=== PATIENT | male | born 1975 ===

== ENCOUNTER 2018-04-20 02:21 | Emergency (ER) | payer OTHER ==
[~2018-04-20] VITALS: Ht 162.6 cm; Wt 88.5 kg
[~2018-04-20 02:21] MED LIST: ADDERALL20 MG PO; DEPAKOTE ER500 MG PO; IMITREX6 MG/0.53 SC; KLONOPIN1 MG PO; MOTRIN800 MG PO; RISPERDAL1 MG PO; SEROQUEL XR300 MG PO; SEROQUEL300 MG PO; SEROQUEL400 MG PO; ZANTAC150 MG PO
[2018-04-20 02:58] LABS: HEMATOCRIT 44.5 % (38.0-50.0); HEMOGLOBIN 15.5 G/DL (12.5-16.6); MCH 32.6 PG (29.0-34.0); MCHC 34.8 G/DL (30.0-36.0); MCV 93.7 FL (86-99); PLATELET COUNT 172 K/uL (156-360); RBC DIS.WIDTH-CV 13.2 % (11.8-14.6); RBC DIS.WIDTH-SD 45.1 % (39-53); RED BLOOD COUNT 4.75 M/uL (4.00-5.50); WHITE BLOOD COUNT 7.8 K/uL (4.1-10.2)
[2018-04-20 03:09] LABS: CHLORIDE 109 mEq/L (99-109); POTASSIUM 4.1 mEq/L (3.7-5.4); SODIUM 145 mEq/L (136-147)
[2018-04-20 03:11] LABS: GLUCOSE 125 mg/dL (70-99)
[2018-04-20 03:14] LABS: SERUM ETHYL ALCOHOL 240 mg/dL
[2018-04-20 03:15] LABS: GFR ESTIMATE (CALCULATED) > 59 mL/min/ (58.99-99999)
[2018-04-20 03:16] LABS: UREA NITROGEN (BUN) 8 mg/dL (9-23)
[2018-04-20 07:11] LABS: APPEARANCE CLEAR ((CLEAR)); BILIRUBIN NEGATIVE; BLOOD NEGATIVE; COLOR YELLOW ((YELLOW)); GLUCOSE (STRIP) NEGATIVE; KETONES 5; LEUKOCYTES NEGATIVE; NITRITE NEGATIVE; PROTEIN (STRIP) NEGATIVE; SPECIFIC GRAVITY 1.013 (1.000-1.030); UCUL ADDED? NO; UROBILINOGEN 0.2 MG/DL (0.2-1.0)
[2018-04-20 07:22] LABS: AMPHETAMINE NEGATIVE (500 ng/mL); BARBITURATES NEGATIVE (200 ng/mL); BENZODIAZEPINES NEGATIVE (150 ng/mL); BUPRENORPHINE NEGATIVE (10 ng/mL); COCAINE NEGATIVE (150 ng/mL); METHADONE NEGATIVE (200 ng/mL); METHAMPHETAMINE NEGATIVE (500 ng/mL); OPIATES (MORPHINE) NEGATIVE (100 ng/mL); OXYCODONE NEGATIVE (100 ng/mL); PHENCYCLIDINE NEGATIVE (25 ng/mL); PROPOXYPHENE NEGATIVE (300 ng/mL); THC CANNABINOIDS NEGATIVE (50 ng/mL); TRICYCLIC ANTIDEPRESSANTS NEGATIVE (300 ng/mL)
[2018-04-20 08:09] VITALS: BP 112/65
== END 2018-04-20 08:13 | disposition home or self-care (01) ==
LOC: EME 02:21
PROVIDERS: Emergency Medicine
DX: F10.229 Alcohol dependence with intoxication, unspecified (principal); F32.9 Major depressive disorder, single episode, unspecified; Y90.8 Blood alcohol level of 240 mg/100 ml or more; Z04.6 Encounter for general psychiatric examination, requested by authority; F25.9 Schizoaffective disorder, unspecified; F90.9 Attention-deficit hyperactivity disorder, unspecified type; F17.200 Nicotine dependence, unspecified, uncomplicated; Z88.0 Allergy status to penicillin
CPT/HCPCS: 80048; 81003; 85027; 99281; 99285; G0480

== ENCOUNTER 2018-06-13 01:13 | Emergency (ER) | payer OTHER ==
[~2018-06-13] VITALS: Ht 170.2 cm; Wt 80.1 kg
[2018-06-13 01:43] LABS: HEMATOCRIT 42.8 % (38.0-50.0); HEMOGLOBIN 15.1 G/DL (12.5-16.6); MCHC 35.3 G/DL (30.0-36.0); MCV 93.4 FL (86-99); PLATELET COUNT 166 K/uL (156-360); RBC DIS.WIDTH-CV 13.1 % (11.8-14.6); RBC DIS.WIDTH-SD 44.7 % (39-53); RED BLOOD COUNT 4.58 M/uL (4.00-5.50); WHITE BLOOD COUNT 13.8 K/uL (4.1-10.2)
[2018-06-13 02:05] LABS: ALBUMIN 4.5 g/dL (3.2-4.8); CHLORIDE 106 mEq/L (99-109); POTASSIUM 3.6 mEq/L (3.7-5.4); SODIUM 140 mEq/L (136-147)
[2018-06-13 02:07] LABS: GLUCOSE 107 mg/dL (70-99)
[2018-06-13 02:08] LABS: TOTAL PROTEIN 7.2 g/dL (6.4-8.3)
[2018-06-13 02:09] LABS: TOTAL BILIRUBIN 0.8 mg/dL (0.0-1.0)
[2018-06-13 02:10] LABS: SERUM ETHYL ALCOHOL 20 mg/dL
[2018-06-13 02:11] LABS: ALKALINE PHOSPHATASE 71 IU/L (3-129); CREATININE 1.1 mg/dL (0.6-1.3); GFR ESTIMATE (CALCULATED) > 59 mL/min/ (58.99-99999)
[2018-06-13 02:12] LABS: UREA NITROGEN (BUN) 11 mg/dL (9-23)
[2018-06-13 02:13] LABS: AST (GOT) 18 IU/L (2-34); TROP-I INTERPRETATION NEGATIVE; TROPONIN-I < 0.01 ng/mL (0.0-0.30)
[2018-06-13 02:14] LABS: ALT (GPT) 22 IU/L (3-49); LIPASE 21 U/L (1.0-51.0)
[2018-06-13 03:55] LABS: CKMB RELATIVE INDEX 0.6 (0.0-3.9); CREATINE KINASE 154 IU/L (1-294); TOTAL CK 154 IU/L (1-294)
[2018-06-13] MEDS ORDERED: NAPROSYN500 MG PO (04:32)
[2018-06-13 05:42] VITALS: BP 128/78
[2018-06-14] MEDS ORDERED: ADDERALL10 MG PO (13:45)
[2018-06-14] MEDS ORDERED: NALTREXONE HCL50 MG PO (13:45)
[2018-06-14] MEDS ORDERED: BUSPIRONE HCL15 MG PO (13:45)
[2018-06-14] MEDS ORDERED: DIVALPROEX SOD500 MG PO (13:46)
[2018-06-14] MEDS ORDERED: QUETIAPINE FUM300 MG PO (13:46)
[2018-06-14] MEDS ORDERED: SUMATRIPTA6 MG/0.51 SC (13:46)
== END 2018-06-13 05:42 | disposition home or self-care (01) ==
LOC: EME → EDBD 01:13 → EME 05:42
PROVIDERS: Emergency Medicine
DX: L03.113 Cellulitis of right upper limb (principal); F14.90 Cocaine use, unspecified, uncomplicated; I80.8 Phlebitis and thrombophlebitis of other sites; R00.0 Tachycardia, unspecified; F10.99 Alcohol use, unspecified with unspecified alcohol-induced disorder; Z88.0 Allergy status to penicillin; F17.200 Nicotine dependence, unspecified, uncomplicated; Y90.1 Blood alcohol level of 20-39 mg/100 ml
CPT/HCPCS: 73201; 80053; 81003; 82550; 82553; 83605; 83690; 84484; 85027; 87040; 87186; 87801; 93005; 99281; 99285; G0480; J3370

== ENCOUNTER 2018-06-14 10:10 | Inpatient (IN) | payer OTHER ==
[~2018-06-14] VITALS: Ht 170.2 cm; Wt 83.5 kg
[~2018-06-14 10:10] MED LIST changes: +NAPROSYN500 MG PO
[2018-06-14 11:28] LABS: BASOPHIL (%) 0.3 % (0-1); EOSINOPHIL (%) 1.2 % (0-5); EOSINOPHIL COUNT 0.1 K/uL (0-0.3); HEMATOCRIT 40.7 % (38.0-50.0); HEMOGLOBIN 14.1 G/DL (12.5-16.6); IMMATURE GRANULOCYTE (%) 0.8 % (0.0-0.7); LYMPHOCYTE (%) 14.4 % (15-42); LYMPHOCYTE COUNT 1.4 K/uL (1.0-2.8); MCH 32.8 PG (29.0-34.0); MCHC 34.6 G/DL (30.0-36.0); MCV 94.7 FL (86-99); MONOCYTE (%) 8.7 % (3-12); MONOCYTE COUNT 0.8 K/uL (0-0.8); NEUTROPHIL (%) 74.6 % (45-76); NEUTROPHIL COUNT 7.2 K/uL (1.8-6.4); PLATELET COUNT 141 K/uL (156-360); RBC DIS.WIDTH-CV 12.9 % (11.8-14.6); RBC DIS.WIDTH-SD 45.2 % (39-53); WHITE BLOOD COUNT 9.7 K/uL (4.1-10.2)
[2018-06-14 11:45] LABS: ALBUMIN 3.8 g/dL (3.2-4.8); CHLORIDE 107 mEq/L (99-109); MAGNESIUM 2.1 mg/dL (1.3-2.7); POTASSIUM 3.4 mEq/L (3.7-5.4); SODIUM 140 mEq/L (136-147)
[2018-06-14 11:47] LABS: GLUCOSE 120 mg/dL (70-99); TOTAL PROTEIN 6.5 g/dL (6.4-8.3)
[2018-06-14 11:50] LABS: TOTAL BILIRUBIN 0.5 mg/dL (0.0-1.0)
[2018-06-14 11:51] LABS: ALKALINE PHOSPHATASE 64 IU/L (3-129); GFR ESTIMATE (CALCULATED) > 59 mL/min/ (58.99-99999)
[2018-06-14 11:52] LABS: UREA NITROGEN (BUN) 8 mg/dL (9-23)
[2018-06-14 11:53] LABS: AST (GOT) 11 IU/L (2-34)
[2018-06-14 11:54] LABS: ALT (GPT) 16 IU/L (3-49)
[2018-06-14] MEDS ORDERED: ADDERALL10 MG PO (13:45)
[2018-06-14] MEDS ORDERED: BUSPIRONE HCL15 MG PO (13:45)
[2018-06-14] MEDS ORDERED: NALTREXONE HCL50 MG PO (13:45)
[2018-06-14] MEDS ORDERED: DIVALPROEX SOD500 MG PO (13:46)
[2018-06-14] MEDS ORDERED: SUMATRIPTA6 MG/0.51 SC (13:46)
[2018-06-14] MEDS ORDERED: QUETIAPINE FUM300 MG PO (13:46)
[2018-06-14 14:06] VITALS: BP 129/82
[2018-06-14 14:18] LABS: CREATINE KINASE 70 IU/L (1-294)
[2018-06-14 17:20] VITALS: BP 125/76
[2018-06-14 20:31] VITALS: BP 144/65
[2018-06-15 00:33] VITALS: BP 118/68
[2018-06-15 04:00] VITALS: BP 118/73
[2018-06-15 07:07] LABS: BASOPHIL (%) 0.4 % (0-1); EOSINOPHIL (%) 1.8 % (0-5); EOSINOPHIL COUNT 0.2 K/uL (0-0.3); HEMATOCRIT 40.8 % (38.0-50.0); HEMOGLOBIN 13.7 G/DL (12.5-16.6); IMMATURE GRANULOCYTE (%) 0.3 % (0.0-0.7); LYMPHOCYTE (%) 20.2 % (15-42); LYMPHOCYTE COUNT 1.9 K/uL (1.0-2.8); MCH 32.1 PG (29.0-34.0); MCHC 33.6 G/DL (30.0-36.0); MCV 95.6 FL (86-99); MONOCYTE (%) 9.4 % (3-12); MONOCYTE COUNT 0.9 K/uL (0-0.8); NEUTROPHIL (%) 67.9 % (45-76); NEUTROPHIL COUNT 6.3 K/uL (1.8-6.4); PLATELET COUNT 139 K/uL (156-360); RBC DIS.WIDTH-CV 12.9 % (11.8-14.6); RBC DIS.WIDTH-SD 45.5 % (39-53); RED BLOOD COUNT 4.27 M/uL (4.00-5.50); WHITE BLOOD COUNT 9.3 K/uL (4.1-10.2)
[2018-06-15 07:08] LABS: CHLORIDE 108 MEQ/L (99-109); CREATININE 0.9 MG/DL (0.6-1.3); GFR ESTIMATE (CALCULATED) > 59 mL/min/ (58.99-99999); SODIUM 141 MEQ/L (136-147); UREA NITROGEN (BUN) 9 mg/dL (9-23)
[2018-06-15 07:12] LABS: GLUCOSE 89 mg/dL (70-99)
[2018-06-15 08:10] VITALS: BP 128/73
[2018-06-15 11:37] LABS: HEPATITIS B SURFACE ANTIGEN Nonreactive; HEPATITIS C ANTIBODY Nonreactive
[2018-06-15 11:48] VITALS: BP 117/76
[2018-06-15 15:48] VITALS: BP 123/69
[2018-06-15 23:57] VITALS: BP 118/59
[2018-06-16 06:10] LABS: HEMATOCRIT 42.1 % (38.0-50.0); HEMOGLOBIN 14.1 G/DL (12.5-16.6); MCH 31.9 PG (29.0-34.0); MCHC 33.5 G/DL (30.0-36.0); MCV 95.2 FL (86-99); PLATELET COUNT 151 K/uL (156-360); RBC DIS.WIDTH-CV 12.7 % (11.8-14.6); RBC DIS.WIDTH-SD 45.1 % (39-53); RED BLOOD COUNT 4.42 M/uL (4.00-5.50)
[2018-06-16 06:30] LABS: CHLORIDE 109 MEQ/L (99-109); CREATININE 1.1 MG/DL (0.6-1.3); GFR ESTIMATE (CALCULATED) > 59 mL/min/ (58.99-99999); GLUCOSE 88 mg/dL (70-99); POTASSIUM 4.2 MEQ/L (3.7-5.4); SODIUM 142 MEQ/L (136-147); UREA NITROGEN (BUN) 13 mg/dL (9-23)
[2018-06-16 07:13] VITALS: BP 115/68
[2018-06-16] MEDS ORDERED: KEFLEX500 MG PO (09:33)
[2018-06-16] MEDS ORDERED: BACTRIM,SEPT1 TABLET PO (09:33)
== END 2018-06-16 10:40 | disposition home or self-care (01) | DRG 603 ==
LOC: EME 10:10 → EDOF 12:32 → 5SOUTH 12:32 → ENRESERV 12:33 → 5SOUTH 13:49
PROVIDERS: Emergency Medicine; Internal Medicine; Internal Medicine Infectious Disease; Physician Assistant
DX: L03.113 Cellulitis of right upper limb (principal); R78.81 Bacteremia; B95.7 Other staphylococcus as the cause of diseases classified elsewhere; F14.10 Cocaine abuse, uncomplicated; I82.611 Acute embolism and thrombosis of superficial veins of right upper extremity; F10.20 Alcohol dependence, uncomplicated; D69.6 Thrombocytopenia, unspecified; F17.210 Nicotine dependence, cigarettes, uncomplicated; F25.9 Schizoaffective disorder, unspecified; F31.9 Bipolar disorder, unspecified; F60.9 Personality disorder, unspecified; F90.9 Attention-deficit hyperactivity disorder, unspecified type; G43.909 Migraine, unspecified, not intractable, without status migrainosus; G47.00 Insomnia, unspecified; M25.50 Pain in unspecified joint; R00.0 Tachycardia, unspecified; R19.7 Diarrhea, unspecified; R20.0 Anesthesia of skin; R20.2 Paresthesia of skin; E66.9 Obesity, unspecified; Z68.28 Body mass index [BMI] 28.0-28.9, adult
CPT/HCPCS: 73130; 73201; 80048; 80053; 81003; 82550; 82553; 83605; 83690; 83735; 84484; 85025; 85027; 85610; 85730; 86803; 87040; 87186; 87340; 87641; 87801; 93005; 99281; 99284; 99285; G0480; J0690; J1650; J1885; J3370